=== PATIENT | male | born 1955 | race Caucasian/White ===

== ENCOUNTER 2020-08-20 02:11 | Outpatient (CLI) | payer MEDICARE, SELFPAY ==
[2020-08-20 22:41] LABS: SARS-CoV-2 RNA PCR Negative
== END 2020-08-20 02:12 | disposition home or self-care (01) ==
LOC: ANHCOVIDDT 02:13
PROVIDERS: PCP Family Medicine; Visit Provider Internal Medicine Gastroenterology
DX: Z01.812 Encounter for preprocedural laboratory examination (principal); Z20.828 Contact with and (suspected) exposure to other viral communicable diseases
CPT/HCPCS: 87635; C9803; U0003

== ENCOUNTER 2020-08-23 00:52 | Day surgery (SDC) | payer MEDICARE, SELFPAY ==
[2020-08-16 13:08] VITALS: BMI 29.4
[2020-08-23 06:50] VITALS: BP 132/72; PULSE 81; RESP 16; TEMP 36.2; O2SAT 97; BMI 29.9
[2020-08-23] MEDS: LACTATED RINGERS 1,000 ML 150 ML IV CONT (06:55)
--- NOTE | 2020-08-23 07:34 | WPDANESEPPF ---
Anes - Initial Pre Proc Eval Procedure: Operation Date: 08/23/20 08:00 Proposed Procedures p Screening Colonoscopy - Skyler Roland MD Date/Time: 08/23/20 07:34 Surgeon: Skyler Roland MD Pre Op Diagnosis: Hx Colon Polyps Patient Data Age: 64 Gender: M Height: 5 ft 10 in Weight: 94.8 kg Last Vital Signs Temp 36.2 C L 08/23/20 06:50 Pulse 81 08/23/20 06:50 Resp 16 08/23/20 06:50 BP 132/72 08/23/20 06:50 Pulse Ox 97 08/23/20 06:50 Allergies Allergy/AdvReac Type Severity Reaction Status Date / Time No Known Allergies Allergy Unknown Verified 08/23/20 06:49 Home Medications Medication Instructions Recorded Confirmed Type cyanocobalamin (vitamin B-12) 1,000 mcg PO DAILY 07/17/19 08/23/20 History 1,000 mcg capsule gabapentin 600 mg tablet 600 mg PO TID #270 tablet 05/01/20 08/23/20 Rx lisinopril 40 mg tablet 40 mg PO DAILY #90 tablet 05/01/20 08/23/20 Rx levothyroxine 100 mcg tablet 100 mcg PO DAILY #90 tablet 08/19/20 08/23/20 Rx Patient hx anesthesia problems: none Family hx anesthesia problems: none PMFSH Past Medical History Medical History Benign colon polyp Benign microscopic hematuria BMI 31.0-31.9,adult Chronic kidney disease (CKD) stage G3a/A1, moderately decreased glomerular filtration rate (GFR) between 45-59 mL/min/1.73 square meter and albuminuria creatinine ratio less than 30 mg/g Conjunctivitis, left eye Gout of right foot History of throat cancer Hypothyroidism, unspecified Mixed hyperlipidemia Nocturia Vitamin B12 deficiency anemia Vitamin D deficiency, unspecified Family History Family History (Updated 01/26/19 @ 14:51 by DOCTOR UNKNOWN) Mother Family history of osteoporosis Father Patient's father is Family history of cardiovascular disease, Onset Age: 50 Family history of malignant neoplasm Grandparent Family history of malignant neoplasm Social History Social History Smoking status: Never smoker Tobacco type: cigarettes Alcohol intake: current Drinks per week: 5 Alcohol use details: beer Substance use: never Substance use type: does not use Living arrangements: with family Gender identity (if verbalized by the patient): Male Spiritual care concerns: No Anes - Eval Final PreProcedure Day of Procedure 08/23/20 07:34 Patient weight: obese Heart: regular rate and rhythm Lungs: clear to auscultation Airway: Mallampati scale class II Neurological: alert and oriented Last oral intake: >/= 8 hours ASA classification: III Emergent: no Anesthetic plan: proceed Anesthesia type and monitoring: general GIVS and standard monitoring Informed Consent: The patient's anesthetic plan and its attendant risks and benefits were discussed with the patient/family/POA. Questions were solicited and answers provided to the satisfaction of the patient/family/POA.
--- NOTE | 2020-08-23 07:46 | WPDGICN ---
Assessment and Plan Assessment and plan (1) History of colon polyps: Code(s): Z86.010 - Personal history of colonic polyps Status: Acute Assessment and Plan: Patient had tubular adenomatous colon polyp removed in the colon 2014. Plan is for follow-up colonoscopy at this time. Should be continued at intervals in the future about 5 year intervals. (2) History of throat cancer: Code(s): Z85.819 - Personal history of malignant neoplasm of unspecified site of lip, oral cavity, and pharynx Status: Acute GI Consult Note Consult date/time: 08/23/20 07:46 HPI: Aida Chang is a 64 year old male Seen in evaluation at the request of Dr. Velasco. Patient presents for screening colonoscopy. Patient was found to have adenomatous colon polyps by previous colonoscopy in 2014. Patient reports current weight appetite bowel movements are all normal. He denies abdominal pain. He has had no bleeding. Family history is noncontributory. Review of Systems Review of Systems: All systems reviewed & are unremarkable except as noted in HPI and below PMFSH Past Medical History Medical History Benign colon polyp Benign microscopic hematuria BMI 31.0-31.9,adult Chronic kidney disease (CKD) stage G3a/A1, moderately decreased glomerular filtration rate (GFR) between 45-59 mL/min/1.73 square meter and albuminuria creatinine ratio less than 30 mg/g Conjunctivitis, left eye Gout of right foot History of throat cancer Hypothyroidism, unspecified Mixed hyperlipidemia Nocturia Vitamin B12 deficiency anemia Vitamin D deficiency, unspecified Family History Family History (Updated 01/26/19 @ 14:51 by DOCTOR UNKNOWN) Mother Family history of osteoporosis Father Patient's father is Family history of cardiovascular disease, Onset Age: 50 Family history of malignant neoplasm Grandparent Family history of malignant neoplasm Social History Social History Smoking status: Never smoker Tobacco type: cigarettes Alcohol intake: current Drinks per week: 5 Alcohol use details: beer Substance use: never Substance use type: does not use Living arrangements: with family Gender identity (if verbalized by the patient): Male Spiritual care concerns: No Meds Home Medications and Allergies Home Medications Medication Instructions Recorded Confirmed Type cyanocobalamin (vitamin B-12) 1,000 mcg PO DAILY 07/17/19 08/23/20 History 1,000 mcg capsule gabapentin 600 mg tablet 600 mg PO TID #270 tablet 05/01/20 08/23/20 Rx lisinopril 40 mg tablet 40 mg PO DAILY #90 tablet 05/01/20 08/23/20 Rx levothyroxine 100 mcg tablet 100 mcg PO DAILY #90 tablet 08/19/20 08/23/20 Rx Allergies Allergy/AdvReac Type Severity Reaction Status Date / Time No Known Allergies Allergy Unknown Verified 08/23/20 06:49 Vital Signs Vital Signs - 24 hr 08/23/20 06:50 Temperature 97.1 F L Pulse Rate 81 Respiratory Rate 16 Blood Pressure 132/72 Pulse Oximetry 97 Exam Narrative: Exam Narrative: Physical exam reveals Vital Signs to be stable. HEENT exam unremarkable. Lungs are clear to auscultation and percussion. Heart is without murmur or extra sounds. Abdominal exam bowel sounds are present soft nontender with no organomegaly.
[2020-08-23 08:17] VITALS: BP 103/62; PULSE 54; RESP 22; O2SAT 95
[2020-08-23 08:27] VITALS: BP 101/66; PULSE 56; RESP 16; O2SAT 98
== END 2020-08-23 08:48 | disposition home or self-care (01) ==
PROVIDERS: PCP Family Medicine; Visit Provider Internal Medicine Gastroenterology
PROC: 0DJD8ZZ Inspection of Lower Intestinal Tract, Via Natural or Artificial Opening Endoscopic (ICD-10-PCS; CPT 45378; principal; 2020-08-23 08:00)
DX: Z12.11 Encounter for screening for malignant neoplasm of colon (principal); D12.2 Benign neoplasm of ascending colon; K64.8 Other hemorrhoids; K57.30 Diverticulosis of large intestine without perforation or abscess without bleeding; E03.9 Hypothyroidism, unspecified; R31.29 Other microscopic hematuria; N18.31 Chronic kidney disease, stage 3a; M10.9 Gout, unspecified; E78.5 Hyperlipidemia, unspecified; R35.1 Nocturia; D51.9 Vitamin B12 deficiency anemia, unspecified; E55.9 Vitamin D deficiency, unspecified; Z85.819 Personal history of malignant neoplasm of unspecified site of lip, oral cavity, and pharynx; E66.9 Obesity, unspecified; Z68.30 Body mass index [BMI] 30.0-30.9, adult
CPT/HCPCS: 45385; 88305; J2704; J7120

== ENCOUNTER 2024-01-10 17:10 | Outpatient (CLI) | payer MEDICARE, SELFPAY ==
--- NOTE | ~2024-01-10 | XR_ITS ---
Left Knee Technique: AP, lateral, and sunrise views were obtained. Clinical History: Pain Findings: No fracture or dislocation is seen. Osseous alignment is anatomic. Minimal degenerative spu rring noted, with probable medial compartment narrowing. Soft tissues are unremarkable. No joint effu coleen is seen. Impression: Minimal degenerative spurring, with probable medial compartment narrowing. Reviewed, dictated and finalized at location . Impression: Minimal degenerative spurring, with probable medial compartment narrowing.
--- NOTE | ~2024-01-10 | XR_ITS ---
Right Knee Technique: AP, lateral, and sunrise views were obtained. Clinical History: Pain Findings: No fracture or dislocation is seen. Osseous alignment is anatomic. There is minimal degener ative spurring with probable mild medial compartment narrowing. Soft tissues are unremarkable. No gaby nt effusion is seen. Impression: Minimal degenerative spurring with probable medial compartment narrowing. Reviewed, dictated and finalized at [facility]. Impression: Minimal degenerative spurring with probable medial compartment narrowing.
== END 2024-01-10 17:11 | disposition home or self-care (01) ==
LOC: ANHIMG 17:11
PROVIDERS: PCP Family Medicine; Visit Provider Nurse Practitioner Family
DX: M25.762 Osteophyte, left knee (principal); M25.761 Osteophyte, right knee
CPT/HCPCS: 73564

== ENCOUNTER 2024-02-11 09:46 | Emergency (ER) | payer MEDICARE, SELFPAY ==
--- NOTE | ~2024-02-11 | XR_ITS ---
EXAMINATION: XR chest 2V DATE: 02/11/2024 10:12 INDICATION: Productive cough. TECHNIQUE: Frontal and lateral views of the chest were obtained on 3 radiographs. COMPARISON: None. FINDINGS: There is no pneumonia, pleural effusion, or pneumothorax. The heart size is normal. IMPRESSION: 1. No acute cardiopulmonary disease. Reviewed, dictated and finalized at location A.
[2024-02-11 10:02] VITALS: BP 118/88; PULSE 93; RESP 20; TEMP 36.4; O2SAT 99
--- NOTE | 2024-02-11 10:28 | ED.URI ---
HPI - URI/Sore Throat General Chief Complaint: Upper Respiratory Infection Stated Complaint: Cold symptoms Source: patient and RN notes reviewed Mode of arrival: ambulatory Limitations: no limitations History of Present Illness HPI Narrative: 68-year-old male presented for complaint of cough and chest congestion, headache, body aches, sinus pressure/congestion, fever/chills. Cough is productive of green sputum. Endorses cough causes bilateral rib pain. Denies sob, wheezing, n/v/d. Patient returned from [facility] the day after onset. MD elicited complaint: cough Related Data Home Medications Medication Instructions Recorded Confirmed cyanocobalamin (vitamin B-12) 1,000 mcg PO DAILY 07/17/19 02/11/24 1,000 mcg capsule cholecalciferol (vitamin D3) 125 5,000 unit PO DAILY 09/09/23 02/11/24 mcg (5,000 unit) capsule Allergies Allergy/AdvReac Type Severity Reaction Status Date / Time No Known Allergies Allergy Unknown Verified 02/11/24 09:58 Review of Systems Review of Systems: CONSTITUTIONAL: Endorses malaise, chills, sweats, fever EYES: Denies visual changes, redness, or discharge ENT: Reports rhinorrhea, congestion, denies sinus pain, otalgia, sore throat CARDIOVASCULAR: Denies chest pain, palpitations, edema RESPIRATORY: Reports cough, Denies dyspnea GASTROINTESTINAL: Denies abdominal pain, nausea, vomiting, diarrhea SKIN: Denies rash or itching MUSCULOSKELETAL: Endorses myalgia NEUROLOGIC: reports headache PMFSH Past Medical History Medical History Abnormal fasting glucose (08/13/21) glucose 103 on 08/13/2021. glucose 98 with hemoglobin A1c 5.4 on 08/12/2022. Fasting glucose 102 with hemoglobin A1c 5.2 on 02/15/2023. Glucose 87 with hemoglobin A1c 5.1 on 08/27/2023. Adverse effect of antineoplastic and immunosuppressive drugs, initial encounter At low risk for fall Benign colon polyp Colonoscopy 08/23/[address] Roland with recheck in 5 years. Benign microscopic hematuria Urinalysis normal 08/12/2022. Urinalysis unremarkable except for trace protein 08/27/2023. BMI 28.0-28.9,adult BMI 29.0-29.9,adult BMI 31.0-31.9,adult Chronic kidney disease (CKD) stage G3a/A1, moderately decreased glomerular filtration rate (GFR) between 45-59 mL/min/1.73 square meter and albuminuria creatinine ratio less than 30 mg/g BUN 19, creatinine 1.38 with GFR 53 on 08/13/2021. BUN 28, creatinine 1.32 with GFR 59 on 08/12/2022. BUN 15 with creatinine 1.41 with GFR 54 on 02/15/2023. BUN 20, creatinine 1.44 with GFR 53 on 08/27/2023. Complete rupture of left Achilles tendon (09/17/21) Conjunctivitis, left eye Encounter for HCV screening test for high risk patient (08/27/23) Hepatitis C screen was negative on 08/27/2023. Encounter for prostate cancer screening PSA 2.66 on 08/12/2022. PSA 2.35 on 08/27/2023. Ganglion cyst of foot (~02/2023) left medial foot 2 cm Gout of right foot uric acid 7.1 on 08/13/2021. Uric acid 6.7 on 08/12/2022. Uric acid 7.2 on 02/15/2023. Uric acid 7.4 on 08/27/2023. History of throat cancer Tongue and tonsil treated with chemotherapy and radiation treatment Hypothyroidism, unspecified TSH 0.49 on 08/13/2021. TSH 0.74 on 08/12/2022. TSH 0.92 on 08/27/2023. Left knee pain Leukocytosis (08/12/22) WBC elevated at 13.7 on 08/12/2022. The DPC normal at 5.6 on 02/15/2023. WBC normal at 5.9 on 08/27/2023 Mixed hyperlipidemia Total cholesterol 211, HDL 49, triglycerides 102, LDL 140 on 08/13/2021. Total cholesterol 188, triglycerides 100, HDL 48, LDL 119 on 08/12/2022. total cholesterol 174, triglycerides 74, HDL 45, LDL 113 with ratio 3.9 on 08/27/2023. Nocturia PSA 2.81 on 08/13/2021. Overweight (BMI 25.0-29.9) Right knee pain Vitamin B12 deficiency anemia normal at 839 on 08/13/2021. level normal at 666 with hemoglobin 14.8 on 08/12/2022. Level normal at 864 with hemoglobin 14.6 on 08/27/2023. Vitamin D deficiency, unspecifi
== END 2024-02-11 11:11 | disposition home or self-care (01) ==
PROVIDERS: Emergency Provider Nurse Practitioner Family; PCP Family Medicine
DX: U07.1 COVID-19 (principal); I12.9 Hypertensive chronic kidney disease with stage 1 through stage 4 chronic kidney disease, or unspecified chronic kidney disease; N18.31 Chronic kidney disease, stage 3a; M10.9 Gout, unspecified; E03.9 Hypothyroidism, unspecified; E78.2 Mixed hyperlipidemia; E55.9 Vitamin D deficiency, unspecified; D51.9 Vitamin B12 deficiency anemia, unspecified; Z85.819 Personal history of malignant neoplasm of unspecified site of lip, oral cavity, and pharynx
CPT/HCPCS: 71046; 87426; 99213; G0463

== ENCOUNTER 2024-03-08 09:32 | Outpatient (CLI) | payer MEDICARE, SELFPAY ==
--- NOTE | 2024-03-08 09:59 | ECG_ITS ---
Test Date: 2024-03-08 10:03:54 Measurements Intervals [place] Rate: 49 P: 49 MI: 174 QRS: 50 QRSD: 103 T: 62 QT: 418 QTc: 380 Interpretive Statements SINUS BRADYCARDIA ABNORMAL ECG No previous ECG available for comparison Electronically Signed On 03-08-2024 10:48:01 CDT by Antonio Acevedo D.O.
[2024-03-08 10:18] LABS: Appearance Urine Clear (Clear); Bilirubin Urine Negative (Negative); Blood Urine Negative (Negative); Color Urine Yellow (Yellow); Glucose Urine UA Negative (Negative); Ketones Urine Negative (Negative); Leukocyte Esterase Ur Negative LEU/UL (Negative); Nitrate Urine Negative (Negative); Protein Urine Negative (Negative); Specific Grav Ur 1.013 (1.001-1.035); Urobilinogen Urine 0.2 mg/dL (<2.0); pH Urine 5.5 (5.0-9.0)
[2024-03-08 10:21] LABS: Add Urine Microscopic? NO
[2024-03-08 10:23] LABS: Hematocrit 40.8 % (42.0-52.0); Hemoglobin 14.1 g/dL (14.0-18.0)
[2024-03-08 10:28] LABS: Alanine Aminotransferase 13 U/L (6-50); Albumin Level 4.4 g/dL (3.5-5.1); Alkaline Phosphatase 71 U/L (38-126); Anion Gap 6 mmol/L (4-12); Aspartate Amino Transferase 21 U/L (17-59); Bilirubin,Total 0.7 mg/dL (0.2-1.3); Blood Urea Nitrogen 23 mg/dL (9-20); Calcium 9.4 mg/dL (8.4-10.2); Carbon Dioxide 27 mmol/L (22-30); Chloride 104 mmol/L (98-107); Cholesterol 216 mg/dL (0-200); Estimated Glomerular Filt Rate 40; Glucose 101 mg/dL (65-110); HDL Direct 45 mg/dL; Potassium 4.6 mmol/L (3.4-5.0); Sodium 137 mmol/L (137-145); Triglycerides 165 mg/dL (<150)
[2024-03-08 10:35] LABS: Hemoglobin A1C 5.6 % (<5.7)
[2024-03-08 10:39] LABS: LDL Cholesterol Direct 139 mg/dL
== END 2024-03-08 09:33 | disposition home or self-care (01) ==
LOC: ANHLAB 09:40
PROVIDERS: PCP Family Medicine; Referring Provider Family Medicine; Visit Provider Orthopaedic Surgery
DX: Z01.818 Encounter for other preprocedural examination (principal); E03.9 Hypothyroidism, unspecified; M17.11 Unilateral primary osteoarthritis, right knee; E78.2 Mixed hyperlipidemia; R73.01 Impaired fasting glucose; I12.9 Hypertensive chronic kidney disease with stage 1 through stage 4 chronic kidney disease, or unspecified chronic kidney disease; N18.31 Chronic kidney disease, stage 3a; R94.31 Abnormal electrocardiogram [ECG] [EKG]
CPT/HCPCS: 36415; 80048; 80061; 80076; 81003; 82040; 82565; 82947; 83036; 84443; 85014; 85018; 93005

== ENCOUNTER 2024-03-27 09:11 | Outpatient (CLI) | payer MEDICARE, SELFPAY ==
[2024-03-27 09:55] LABS: Albumin Level 4.2 g/dL (3.5-5.1); Anion Gap 5 mmol/L (4-12); Blood Urea Nitrogen 20 mg/dL (9-20); Calcium 9.2 mg/dL (8.4-10.2); Carbon Dioxide 29 mmol/L (22-30); Chloride 103 mmol/L (98-107); Estimated Glomerular Filt Rate 46; Glucose 104 mg/dL (65-110); Phosphorus 2.7 mg/dL (2.5-4.5); Potassium 4.5 mmol/L (3.4-5.0); Sodium 137 mmol/L (137-145)
== END 2024-03-27 09:12 | disposition home or self-care (01) ==
PROVIDERS: PCP Family Medicine; Visit Provider Internal Medicine Nephrology
DX: N18.32 Chronic kidney disease, stage 3b (principal)
CPT/HCPCS: 36415; 80069

== ENCOUNTER 2024-06-21 10:15 | Outpatient (CLI) | payer MEDICARE, SELFPAY ==
[2024-06-21 12:03] LABS: Basophils Absolute Auto 0.1 K/mm3 (0.0-0.1); Eosinophils Absolute Auto 0.2 K/mm3 (0-0.3); Eosinophils Percent Auto 2.6 % (0-4.4); Hematocrit 48.1 % (42.0-52.0); Hemoglobin 16.3 g/dL (14.0-18.0); Immature Granulocyte Absolute 0.04 K/mm3 (0.00-0.031); Immature Granulocyte Percent A 0.6 % (0-0.5); Lymphocytes Absolute Auto 1.58 K/mm3 (0.9-3.2); Lymphocytes Percent Auto 21.8 % (18.3-44.2); Mean Corpuscular HGB Conc 33.9 g/dl (32-36); Mean Corpuscular Hemoglobin 30.8 pg (26-34); Mean Corpuscular Volume 90.9 fl (80-100); Mean Platelet Volume 10.1 fl (7.4-10.4); Monocytes Absolute Auto 0.6 K/mm3 (0.1-0.6); Neutrophils Absolute Auto 4.8 K/mm3 (1.3-6.7); Platelet Count Result 224 k/mm3 (150-375); Red Blood Count 5.29 M/mm3 (4.6-6.20); Red Cell Distribution Width 12.7 % (11.5-14.5); White Blood Count 7.3 K/mm3 (4.5-10.0)
[2024-06-21 12:15] LABS: Albumin Level 4.8 g/dL (3.5-5.1); Estimated Glomerular Filt Rate 30; Glucose 95 mg/dL (65-110)
[2024-06-21 12:21] LABS: Urine Cotinine NEGATIVE
[2024-06-21 13:15] LABS: MRSA (PCR) NOT DETECTED (NOT DETECTE)
[2024-06-21 13:55] LABS: Hemoglobin A1C 5.5 % (<5.7)
== END 2024-06-21 10:16 | disposition home or self-care (01) ==
PROVIDERS: PCP Family Medicine; Visit Provider Orthopaedic Surgery
DX: Z01.812 Encounter for preprocedural laboratory examination (principal); M17.11 Unilateral primary osteoarthritis, right knee
CPT/HCPCS: 80307; 82040; 82565; 82947; 83036; 85025; 87641

== ENCOUNTER 2024-07-20 01:14 | Day surgery (SDC) | payer MEDICARE, SELFPAY ==
[2024-06-21 10:26] VITALS: BMI 30.1
--- NOTE | 2024-06-21 10:55 | PC.NURSE ---
Report to the Outpatient Waiting Room, entrance under the green pavilion located off [facility], at time _6 AM on date _07/20/24 . Planned Procedure Time: _7:30 AM .? Time changes happen often and if your time is changed the preop area will call you the afternoon before. - You and your visitor will be asked to self-screen and do not enter if you have any COVID symptoms. Please call surgeon if you need to reschedule. - A mask is optional within the hospital at this time. Patients may have clear liquids (water, carbonated beverages, clear teas, apple juice) until 3 hours prior to surgery(4:30 AM) with a maximum of 20 ounces. - No food from midnight until time of surgery and no smoking - Infants may have breast milk until 4 hours before surgery, infant formula 6 hours prior to surgery. - Children will be allowed to drink immediately following surgery.? If applicable, please bring a bottle or sippy cup to assist with drinking. Juice, water, soda, and popsicles are readily available.? For infants on formula, please bring formula the day of surgery.? Pacifiers are allowed. Take only the following medications with a SIP of water on the morning of surgery: _GABAPENTIN,LEVOTHYROXINE, DO NOT STOP ANY OF YOUR OTHER PRESCRIPTION MEDICATIONS PRIOR TO SURGERY EXCEPT THE FOLLOWING Medications to discontinue per physician __HOLD IBUPROFEN 7 DAYS PRE OP PER DR HUNTLEY. LAST DOSE 07/12/24_MAY TAKE TYLENOL IF NEEDED FOR PAIN PT STATES HOLD ALL VITAMINS AND SUPPLEMENTS 7 DAYS PRE OP PER DR HUNTLEY .LASTT DOSE 07/12/24 Please no make-up, nail maori, hairspray, perfume, deodorant, or body powder the day of surgery.? No jewelry (including any body piercings) or valuables the day of surgery, leave them at home.? Please take a shower or bath the night before, or the morning of, surgery with an antibacterial soap.? Wear comfortable, loose fitting clothing.? Children are encouraged to wear pajamas. - Jewelry must be removed prior to entering the operating room.? Rings and piercings that are not removed may be cut off. - The hospital will not accept responsibility for valuables.? - Please leave all valuables, including medications, at home the day of surgery. If you are going home after surgery, a licensed restaurant delivery driver must drive you home.? - NO public transportation without another adult if you receive anesthesia. - We recommend that an adult stay with you for 24 hours following discharge. - We also recommend that you do not drive, make important decision, drink alcoholic beverages, or take any drugs that were not prescribed by your health care provider for at least 24 hours after your discharge time. Follow any additional instructions given to you from your surgeon. VERBAL AND WRITTEN instructions given to PATIENT AND MARLENE and asked if any additional questions and then verbalized understanding. Patient advised to call surgeon office or pre surgery nurse liaison [phone] if any additional questions.
[2024-06-21 11:16] VITALS: BP 157/92; PULSE 55; RESP 18; TEMP 36.7; O2SAT 99
[2024-07-20] VITALS (14 sets, daily range): BP systolic 123–145; BP diastolic 65–89; PULSE 45–80; RESP 10–18; TEMP 36.2–37.6; O2SAT 96–100
--- NOTE | ~2024-07-20 | XR_ITS ---
EXAMINATION: [id number] DATE: 07/20/2024 10:09 INDICATION: Postoperative evaluation following right total knee arthroplasty. TECHNIQUE: Anteroposterior and lateral views of the right knee were obtained. COMPARISON: None. FINDINGS: Right total knee arthroplasty with patellar resurfacing appears well seated and in near anatomic alig nment. No fractures identified. Expected postoperative subcutaneous and intra-articular gas. IMPRESSION: 1. Right total knee arthroplasty, negative for postoperative purposes. Reviewed, dictated and finalized at location B. ET OPENINGS INSPECTOR
[2024-07-20] MEDS: ACETAMINOPHEN 500 MG TABLET 1000 MG PO (06:55)
[2024-07-20] MEDS: TRANEXAMIC ACID 1,000MG/ISO100 1,000 MG/100 ML BAG 200 MG IVPB ×2 (06:55→09:13)
--- NOTE | 2024-07-20 07:04 | WPDANESEPPF ---
Anes - Initial Pre Proc Eval Procedure: Operation Date: 07/20/24 07:30 Proposed Procedures p Right Total Knee Arthroplasty - Jt Loomis MD Date/Time: 07/20/24 07:04 Surgeon: Jt Loomis MD Pre Op Diagnosis: Prim O A Rt knee Patient Data Age: 68 Gender: M Height: 1.77 m Weight: 93.9 kg Last Vital Signs Temp 98.1 F 06/21/24 11:16 Pulse 55 L 06/21/24 11:16 Resp 18 06/21/24 11:16 BP 157/92 H 06/21/24 11:16 Pulse Ox 99 06/21/24 11:16 O2 Del Method Room Air 06/21/24 11:16 Allergies Allergy/AdvReac Type Severity Reaction Status Date / Time No Known Allergies Allergy Unknown Verified 06/21/24 10:27 Home Medications Medication Instructions Recorded Confirmed Type cyanocobalamin (vitamin B-12) 1,000 mcg PO DAILY 07/17/19 06/21/24 History 1,000 mcg capsule lisinopril 40 mg tablet 40 mg PO DAILY #90 tabs 07/19/23 06/21/24 Rx cholecalciferol (vitamin D3) 125 5,000 unit PO DAILY 09/09/23 06/21/24 History mcg (5,000 unit) capsule levothyroxine 100 mcg tablet 100 mcg PO DAILY #90 tabs 02/28/24 06/21/24 Rx dapagliflozin propanediol 10 mg 10 mg PO DAILY #90 tabs 03/29/24 06/21/24 Rx tablet (Farxiga) gabapentin 600 mg tablet 600 mg PO BID #270 tabs 06/05/24 06/21/24 Rx ibuprofen 400 mg tablet 400 mg PO Q6H PRN Pain 06/21/24 06/21/24 History Patient hx anesthesia problems: none Family hx anesthesia problems: none Results Review: All pre-operative results and documents have been reviewed as part of the pre-operative evaluation. [facility] Past Medical History Medical History Abnormal fasting glucose (08/13/21) glucose 103 on 08/13/2021. glucose 98 with hemoglobin A1c 5.4 on 08/12/2022. Fasting glucose 102 with hemoglobin A1c 5.2 on 02/15/2023. Glucose 87 with hemoglobin A1c 5.1 on 08/27/2023. Glucose 101 with hemoglobin A1c 5.6 on 03/08/2024. Glucose 101 with hemoglobin A1c 5.6 on 03/08/2024. Glucose 104 on 03/27/2024. Glucose 95 with hemoglobin A1c 5.5 on 06/21/2024. Adverse effect of antineoplastic and immunosuppressive drugs, initial encounter At low risk for fall Benign colon polyp Colonoscopy 08/23/[address] Roland with recheck in 5 years. Benign microscopic hematuria Urinalysis normal 08/12/2022. Urinalysis unremarkable except for trace protein 08/27/2023. BMI 28.0-28.9,adult BMI 29.0-29.9,adult BMI 31.0-31.9,adult Chronic kidney disease (CKD) stage G3a/A1, moderately decreased glomerular filtration rate (GFR) between 45-59 mL/min/1.73 square meter and albuminuria creatinine ratio less than 30 mg/g BUN 19, creatinine 1.38 with GFR 53 on 08/13/2021. BUN 28, creatinine 1.32 with GFR 59 on 08/12/2022. BUN 15 with creatinine 1.41 with GFR 54 on 02/15/2023. BUN 20, creatinine 1.44 with GFR 53 on 08/27/2023. BUN 23, creatinine 1.70, GFR 40 on 03/08/2024. Complete rupture of left Achilles tendon (09/17/21) Conjunctivitis, left eye COVID-19 Encounter for HCV screening test for high risk patient (08/27/23) Hepatitis C screen was negative on 08/27/2023. Encounter for prostate cancer screening PSA 2.66 on 08/12/2022. PSA 2.35 on 08/27/2023. Ganglion cyst of foot (~02/2023) left medial foot 2 cm Gout of right foot uric acid 7.1 on 08/13/2021. Uric acid 6.7 on 08/12/2022. Uric acid 7.2 on 02/15/2023. Uric acid 7.4 on 08/27/2023. History of throat cancer Tongue and tonsil treated with chemotherapy and radiation treatment Hypothyroidism, unspecified TSH 0.49 on 08/13/2021. TSH 0.74 on 08/12/2022. TSH 0.92 on 08/27/2023. TSH 1.48 on 03/08/2024. Left knee pain Leukocytosis (08/12/22) WBC elevated at 13.7 on 08/12/2022. The DPC normal at 5.6 on 02/15/2023. WBC normal at 5.9 on 08/27/2023 Mixed hyperlipidemia Total cholesterol 211, HDL 49, triglycerides 102, LDL 140 on 08/13/2021. Total cholesterol 188, triglycerides 100, HDL 48, LDL 119 on 08/12/2022. total cholesterol 174, triglycerides 74, HDL 45, LDL 113 with ratio 3.9 on 08/27/2023. Cholesterol 216, triglycerides 165, HDL 45, LDL 139 on 03/08/2024. Nocturia PSA 2.81 on 08/13/2021. Overweight (BMI 25.0-29.9) Right knee pain Vitamin B12 deficiency anemia normal at 839 on 08/13/2021. level normal at 666 with hemoglobin 14.8 on 08/12/2022. Level normal at 864 with hemoglobin 14.6 on 08/27/2023. Vitamin D deficiency, unspecified level low at 22 on 08/13/2021. Low at 25 on 08/12/2022 with PTH normal at 36. vitamin D 24 on 02/15/2023. Level low at 23 on 08/27/2023. Surgical History Surgical History History of arthroscopic knee surgery Family History Family History Mother Family history of osteoporosis Father Patient's father is Family history of cardiovascular disease, Onset Age: 50 Family history of malignant neoplasm Family history of alcoholism Hypertension Heart disease Grandparent Family history of malignant neoplasm Sibling Family history of alcoholism Social History Social History Smoking packs per day: 1 Smoking cigarettes per day: 20.0 Years smoked: 6 Smoking pack-years: 6.00 Smoking status: Former smoker Tobacco type: cigarettes Smoking end date: 09/06/98 Additional smoking assessment comments: DENIES ANY FORM OF TOBACCO USE Alcohol intake: current Drinks per week: 8 Alcohol use details: beer Substance use: never Substance use type: does not use Do You Feel Safe in your Home?: Yes Lack of Transportation: No Lack of Food: Never True Current Housing: I Have Housing Concerned About Future Housing: No Difficulty Paying Gas/Electric Bills: No Difficulty Paying for Meds: No Currently Unemployed: No Education: High School Diploma/GED Difficulty w/ Childcare or Family Care: Decline to Answer Living arrangements: with family Occupation/Education: retired Gender identity (if verbalized by the patient): Male Spiritual care concerns: No Anes - Eval Final PreProcedure Day of Procedure 07/20/24 07:04 Patient weight: overweight Heart: regular rate and rhythm Lungs: clear to auscultation Airway: Mallampati scale class II Neurological: alert and oriented Last oral intake: >/= 8 hours ASA classification: III Emergent: no Anesthetic plan: proceed Anesthesia type and monitoring: general LMA and standard monitoring Results Review: All pre-operative results and documents have been reviewed as part of the pre-operative evaluation. HTN, hyperlipidemia, hypothyroidism, hx of tonsillar ca, s/p chemo and radiation (no surgery). Pt active without cp or sob, limited by knee pain. EKG w NSR, SB. Informed Consent: The patient's anesthetic plan and its attendant risks and benefits were discussed with the patient/family/POA. Questions were solicited and answers provided to the satisfaction of the patient/family/POA.
--- NOTE | 2024-07-20 07:09 | WPDHPUPDATE1 ---
History and Physical Update Update Date/Time: 07/20/24 07:09 History and Physical has been reviewed, including an updated exam of the patient. There are NO changes in the patient's condition. Risks, benefits, and alternatives have been discussed and questions answered. Patient agrees to proceed with procedure.
[2024-07-20] MEDS: ceFAZolin 2 GM/D5W 50 ML 2 GM/50 ML BAG IVPB ×3 (07:35→23:07)
[2024-07-20] MEDS: SODIUM CHLORIDE 0.9% IV 37.7 ML, MORPHINE SULFATE INJ (*CRX) 2 MG, ROPivacaine HCL 1% 2... INFILTRATE (08:05)
[2024-07-20] MEDS: GENTAMICIN BONE CEMENT REFOBACIN 1 EACH TOPICAL (08:10)
[2024-07-20] MEDS: LACTATED RINGERS 1,000 ML 30 ML IV CONT ×2 (09:41)
--- NOTE | 2024-07-20 10:08 | P.OP_ITS ---
Procedure Note - Detailed Date of Procedure 07/20/24 Pre-op Diagnosis Right knee degenerative arthritis. Post-op Diagnosis Same Procedure Performed Calipered, kinematically aligned total knee replacement right knee. Surgeon Jt Loomis MD Recruiting And Selection Consultant Naila Helms PA-C Anesthesia General Findings According to the calipered kinematic alignment principles, the knee was balanced by the following verification checks incorporating 6 caliper measurements, using an insert goniometer to select the insert thickness, and adjusting the tibial resection following the kinematic alignment algorithm (see figure 160.10 published in [employer] [facility] chapter on kinematic alignment total knee arthroplasty.) The steps verified the femoral and tibial components were kinematically aligned coincident to the patient's pre arthritic joint lines, which closely restored the dry creek tibial compartment forces and ligament laxities without ligament release. The [employer] knee, designed specifically for kinematic alignment, fit optimally. The record of verification checks were documented and scanned into the chart. Distal Femoral Resection: Distal Medial 6 mm(cartilage worn), Distal Lateral 8 mm Target thickness of 8mm Unworn, 6mm Worn (No Cartilage). Posterior Femoral Resection: Posterior Medial 5 mm(cartilage worn), Posterior Lateral 7 mm. Target thickness of 7mm Unworn, 5mm Worn (No Cartilage). Description of Procedure General anesthesia was administered. A well-padded tourniquet was placed high on the thigh. The limb was prepped and draped in the usual sterile fashion. The limb was exsanguinated and the tourniquet inflated to 300 mmHg. A longitudinal incision was created over the midline of the knee. Sharp dissection was taken through subcutaneous tissues. Electrocautery was used for hemostasis. A trivector approach to the knee joint was performed. The ACL, anterior horns of the menisci, and fat pad were excised, and a subperiosteal dissection was carried along the posterior medial border of the tibia. The thickness of the dry creek patella was measured with a caliper. The patella was resected using the oscillating saw. The best fitting anatomic patella button was selected. The fixation holes were drilled. When the patella and patella buttons combined thickness was thicker than the dry creek patella, the patella was recut. Starting midway between the top of the notch in the anterior femoral cortex, I drilled a 9 mm diameter hole parallel to the anterior cortex to minimize flexion of the femoral component and promote patella tracking. I verified the existence of a 5-10 mm bone bridge between the posterior aspect of the hole and the anterior limit of the intercondylar notch. An intraosseous positioning kumar was inserted 10 cm into the femur perpendicular to the distal joint line and parall el to the anterior cortex. I used a distal femoral referencing guide that compensated 2 mm when the cartilage was worn on the distal medial femoral condyle, and 2 mm when the cartilage was worn on the distal lateral femoral condyle. The basis for setting the distal and posterior femoral resection guide is knowing that the varus and valgus grade II to IV Kellegren-Torin osteoarthritic knees have negligible bone wear at 0? and 90? and that the mean full-thickness cartilage wear approximates 2 mm. I measured the thickness of distal femoral resections with a caliper to +/- 0.5 mm. The thickness of each resection was adjusted to match the thickness of the respective condyle of the femoral component within 0.5 mm of target after compensating for cartilage wear and kerf. When the distal r esection was 1-2 mm too thin, a recut guide was used to adjust the cut. When the distal resection was too thick, a 1 or 2 mm thick washer was fixed to the back of the 4-in-1 chamfer block to nolberto a corrective gap between the femoral component and distal femur. I set posterior femoral referencing guide at 0? orientation to position the pin holes for the 4 in 1 chamfer block. The katheryn wing measured the width of the distal femoral resection and selected the size of the 4 in 1 chamfer block and femoral component. The AP sizer confirmed the size. I measured the thickness of the posterior femoral resections with a caliper before making the anterior and chamfer cuts. I adjusted the thicknesses of each resection to match the thickness of the respective condyle of the femoral component within +/-0.5 mm after compensating for cartilage wear and curve. When a posterior resection femoral resection was 1-2 mm too thick or thin a corrective correction was made by shifting or rotating the 4 in 1 chamfer block as needed. The chamfer block was secured in the correct position with compression screws. The anterior and chamfer femoral resections were made. These caliper measurements and alirio ections verified that the femoral component was set coincident with the patient's pre-arthritic distal and posterior femoral joint lines. I removed all the medial and lateral femoral and tibial osteophytes to restore the pre arthritic length of the medial and lateral collateral ligaments. I gail AP lines along the major axis of the lateral tibial plateau in between the tibial spines which identified the flexion extension plane of the knee. A conventional extramedullary tibial resection guide was applied to the ankle. An katheryn wing was placed medially in the saw slot. The varus valgus angle of the tibial resection guide was adjusted until the guide paralleled the proximal tibial articular surface after compensating for cartilage and bone wear. The slope of flexion extension angle of the tibial resection guide was adjusted until the katheryn wing paralleled the slope of the medial tibia after compensating for wear. The AP axis of the tibial resection guide was adjusted parallel to th e two lines. The proximal tibia was resected, partially releasing the insertion of the posterior cruciate ligament. The thickness of the medial and lateral lateral tibial condyle was measured at the base of the tibial spines. I visually verified the slope of the medial border of the resection was parallel to the patient's pre arthritic slope after compensating for cartilage and bone wear. I removed the remnants of the posterior horns of the menisci and posterior osteophytes and cauterized the inferior lateral genicular vessels. The Aquamantys bipolar device was also used to for additional hemostasis. When the knee had a preoperative flexion contracture of 20? or more I teased the capsule off the posterior femur with a curved 3 quarter-inch osteotome. I administered the posterior femoral periosteal injection by delivering 10 cc using a 20 gauge spinal needle at the most medial and 10 cc at the most lateral femoral spur surface which reduced the risk of injury to the posterior neurovascular structures. I followed 6 options in a decision tree to fine tune the varus valgus and posterior slope orientation of the tibial component to restore the patient's pre arthritic tibial joint line and limb alignment. First, I adjusted the varus- valgus orientation of the proximal tibia resection working in 1 degree to 2 degree increments until there was negligible medial and lateral lift off of the distal femoral and proximal tibial resection from the spacer block during a varus valgus laxity assessment in extension. I selected the largest anatomic shape trial tibial base plate that fit within the cortical boundary of the proximal tibial resection. The base plate was best fit parallel to the cortical boundary which set the Internal-external orientation of the anterior to posterior and medial to lateral positions. The best fit method set the AP axis of the tibial base plate and insert parallel to the flexion extension plane of the pre arthritic knee. I pinned the trial t ibial base plate, prepared the cruciate slot, and fixed the base plate to the tibia with the cruciate stem. I inserted the trial femoral component. The knee was placed in full extension. Varus valgus laxity is of the knee with trial components were assessed. When asymmetric laxity was observed a 1-2 degree varus or valgus recut guide was used to fine tune the tibial resection until the laxity was 1 degree or less in full extension like the dry creek knee. The following steps determined the optimal insert thickness within +/-1 mm. First I inserted an insert goniometer that matched the thickness of the spacer block. I reduced the patella and then with the knee in maximum extension, I verified the knee hyperextended a few degrees and had negligible varus valgus laxity, like the pre arthritic knee. He required a release of the posterior lateral capsule. Next, I measured the external tibial orientation which was the angle the insert goniometer intersected the sagittal line on the medial condyle of the femoral trial component. Then with the knee in 15-30 degrees flexion I verified a 3-4 mm gap in the lateral compartment and no gap in the medial compartment during a 2nd varus valgus laxity test. Next, I placed the knee in 90? of flexion and the foot resting on the operating table and measured the internal tibial orientation. I repeated the steps until I identified the insert thickness that provided the highest external tibia orientation in extension and the highest internal tibial orientation at 90? flexion without anterior lift-off of the insert from the tibial base plate. The insert with this thickness was implanted. I applied a posterior drawer test with the tibia distracted by gravity and verified no posterior subluxation of the tibia relative to the femur. The patella remained centered on the trochlea and tracked well throughout the entire arc of flexion and extension. I used pulse lavage to clean the bony surfaces of debris and dried bone. I cemented the tibial, femoral, and patellar components using 1 bag of methylmethacrylate with Gentamycin, then rechecked the stability at full extension, 15-30 degrees, and 90? flexion and verified sabianist of the entire arc of motion of the knee. The circulating nurse confirmed the sponge and needle counts were correct. I used pulse lavage to rinse the joint and wound. The extensor mechanism was closed with interrupted #1 Vicryl suture and #1 running Stratafix suture. The subcutaneous layer was closed with interrupted #1 Vicryl suture followed by 2-0 Stratafix and 3-0 Stratafix. Steri-Strips placed on the skin. Silver impregnated occlusive dressing applied to the wound. A light gauze wrap and Fito bandage were placed. The patient was transferred to the recovery room in stable condition. There were no complications. Implants Medacta GMK spheriKA Femoral component SpheriKA size 7, tibial component size 5, vitamin-E flex insert, thickness 11mm, Anatomic patella implant size 3. Estimated Blood Loss 20 Tourniquet Time Total Tourniquet Time: 80 Drains No Pathology None sent Complications No immediate complications Condition Stable Disposition PACU [facility] Billing Surgery - Charge Forward: Surgery Billing
[2024-07-20] MEDS: ACETAMINOPHEN 325 MG TABLET 650 MG PO ×3 (11:41→23:06)
--- NOTE | 2024-07-20 12:02 | ADMGEN ---
This patient, Aida Chang, was admitted to 3 Med Surg Room 317-01. Patient/family oriented to hospital policies and general routines including ID bracelet, bed and alarms, visiting hours, pain management, procedures, bathroom and other care routines, personal items, smoking policy, room service/diet, and visiting hours. Information on how to activate the Rapid Response Team has been discussed. Patient/Family are encouraged to report perceived risks to care and to ask questions if they do not understand what they are told or what they should do. Report from Danielle.
[2024-07-20] MEDS: MELOXICAM 7.5 MG TABLET PO (16:36)
[2024-07-20] MEDS: predniSONE 5 MG TABLET PO (16:36)
[2024-07-20] MEDS: GABAPENTIN 300 MG CAPSULE 600 MG PO (16:36)
[2024-07-20] MEDS: SENNA/DOCUSATE SODIUM TABLET 2 TAB PO (16:36)
[2024-07-20] MEDS: FAMOTIDINE 20 MG TABLET PO (21:38)
[2024-07-20] MEDS: ASPIRIN 81 MG ENTERIC TABLET PO (21:38)
[2024-07-21] MEDS: oxyCODONE/ACETAMINOPHEN (*CRX) 10-325 MG TABLET 1 TAB PO ×2 (02:55→08:50)
[2024-07-21 03:31] VITALS: BP 136/82; PULSE 61; RESP 18; TEMP 36.8; O2SAT 97
[2024-07-21] MEDS: LEVOTHYROXINE SODIUM 100 MCG TABLET PO (05:32)
[2024-07-21] MEDS: ACETAMINOPHEN 325 MG TABLET 650 MG PO (05:32)
[2024-07-21 07:01] LABS: Basophils Percent Auto 0.4 % (0.2-1.2); Eosinophils Percent Auto 0.3 % (0-4.4); Hematocrit 39.2 % (42.0-52.0); Immature Granulocyte Absolute 0.05 K/mm3 (0.00-0.031); Immature Granulocyte Percent A 0.5 % (0-0.5); Lymphocytes Absolute Auto 1.31 K/mm3 (0.9-3.2); Lymphocytes Percent Auto 12.8 % (18.3-44.2); Mean Corpuscular HGB Conc 33.2 g/dl (32-36); Mean Corpuscular Hemoglobin 30.7 pg (26-34); Mean Corpuscular Volume 92.7 fl (80-100); Mean Platelet Volume 10.3 fl (7.4-10.4); Monocytes Percent Auto 9.9 % (2.6-8.5); Neutrophils Absolute Auto 7.8 K/mm3 (1.3-6.7); Neutrophils Percent Auto 76.1 % (45.5-73.1); Platelet Count Result 201 k/mm3 (150-375); Red Blood Count 4.23 M/mm3 (4.6-6.20); Red Cell Distribution Width 12.9 % (11.5-14.5); White Blood Count 10.2 K/mm3 (4.5-10.0)
[2024-07-21 07:15] LABS: Anion Gap 7 mmol/L (4-12); Blood Urea Nitrogen 32 mg/dL (9-20); Calcium 8.9 mg/dL (8.4-10.2); Carbon Dioxide 26 mmol/L (22-30); Chloride 104 mmol/L (98-107); Estimated CRCL calculation 36 ml/min; Estimated Glomerular Filt Rate 33; Glucose 113 mg/dL (65-110); Potassium 5.3 mmol/L (3.4-5.0); Sodium 137 mmol/L (137-145)
[2024-07-21] MEDS: FAMOTIDINE 20 MG TABLET PO (08:50)
[2024-07-21] MEDS: EMPAGLIFLOZIN 25 MG TABLET BY MOUTH (08:51)
[2024-07-21] MEDS: ASPIRIN 81 MG ENTERIC TABLET PO (08:51)
[2024-07-21] MEDS: SENNA/DOCUSATE SODIUM TABLET 2 TAB PO (08:52)
[2024-07-21] MEDS: ceFAZolin 2 GM/D5W 50 ML 2 GM/50 ML BAG IVPB (08:52)
[2024-07-21] MEDS: lisinopriL 20 MG TABLET 40 MG PO (08:52)
[2024-07-21 08:56] VITALS: BP 140/70; PULSE 80; RESP 20; TEMP 35.9; O2SAT 100
--- NOTE | 2024-07-21 09:39 | PM.DS ---
DS: Admitting Diagnosis Discharge Date 07/21/24 Admitting Diagnosis Knee arthritis. DS: Discharge Diagnosis Discharge Diagnosis (1) Status post total right knee replacement: Onset Date: 07/20/24 Code(s): Z96.651 - Presence of right artificial knee joint Status: Acute Assessment and Plan: Postop day 1: Right total knee arthroplasty. Patient tolerated procedure well. No complications. Pain manageable with pain medication. No numbness or tingling. We had a lengthy discussion regarding postoperative wound care, limitations, expectations, and exercises. Patient shows good understanding. He has had initial physical therapy and is tolerating it well. DVT prophylaxis: 81 mg baby aspirin b.i.d. for 14 days. Pain medication: Percocet. Prednisone. Patient has followup appointment with Dr. Loomis in 3 weeks. Due to worsening kidney function after surgery (not as bad as it was 1 month ago), please call Dr. Linder's office to follow up. Drink lots of water. Avoid NSAIDs. DS: Summary Hospital Course Reason for hospitalization: Total knee arthroplasty Hospital Course: Patient tolerated procedure well. Has had initial PT/OT. Status at Discharge Functional status at discharge: uses cane/walker Overall status at discharge: patient is progressing back to baseline Time Spent with Patient Time attestation: Total time spent providing and/or coordinating discharge services: Exam Narrative: 68 y/o normal weight male. Resting comfortably in bed. Wearing compression socks bilaterally. Dressing intact with no drainage. Moderate swelling. No ecchymosis. No erythema. No hematoma. Range of motion limited due to pain. Calf nontender. Neurologic status intact. No varicosities. Distal pulses palpable. DS: Data Data Completed and Pending Labs on day of discharge: Labs from last 24 hours 07/21/24 06:48 WBC 10.2 H RBC 4.23 L Hgb 13.0 L D Hct 39.2 L MCV 92.7 MCH 30.7 MCHC 33.2 RDW 12.9 Plt Count 201 MPV 10.3 Immature Gran % (Auto) 0.5 Neut % (Auto) 76.1 H Lymph % (Auto) 12.8 L Petroleum % (Auto) 9.9 H Eos % (Auto) 0.3 Baso % (Auto) 0.4 Lymph # (Auto) 1.31 Petroleum # (Auto) 1.0 H Eos # (Auto) 0.0 Baso # (Auto) 0.0 Abs Immat Gran (auto) 0.05 H Absolute Neuts (auto) 7.8 H Absolute Nucleated RBC 0.000 Nucleated RBC % 0.0 Sodium 137 Potassium 5.3 H Chloride 104 Carbon Dioxide 26 Anion Gap 7 BUN 32 H D Creatinine 2.00 H Estim Creat Clear Calc 36 Estimated GFR 33 L Glucose 113 H Calcium 8.9 Discharge Plan Discharge Patient Disposition: Home, Self-Care Discharge Instructions: See green instruction sheets Stand Alone Forms: General Discharge Instructions Follow-up/Referrals: Naila Helms PA [Physician General Accounting Clerk] - Discharge Medications: New prednisone 5 mg tablet 5 mg PO DAILY 21 Days Qty: 21 0RF aspirin 81 mg tablet,delayed release (DR/EC) 81 mg PO BID 14 Days Qty: 28 0RF oxycodone-acetaminophen 5-325 mg tablet 1 - 2 tablet PO Q4-6H PRN (Reason: pain) 7 Days Qty: 30 0RF Continued cholecalciferol (vitamin D3) 125 mcg (5,000 unit) capsule 5,000 unit PO DAILY dapagliflozin propanediol [Farxiga] 10 mg tablet 10 mg PO DAILY Qty: 90 3RF cyanocobalamin (vitamin B-12) 1,000 mcg capsule 1,000 mcg PO DAILY lisinopril 40 mg tablet 40 mg PO DAILY Qty: 90 3RF levothyroxine 100 mcg tablet 100 mcg PO DAILY Qty: 90 3RF gabapentin 600 mg tablet 600 mg PO BID Qty: 270 3RF
[2024-07-21] MEDS: GABAPENTIN 300 MG CAPSULE 600 MG PO (10:54)
== END 2024-07-21 11:50 | disposition home or self-care (01) ==
LOC: ANHSURGERY 07:32 → ANH3MEDSUR 11:15
PROVIDERS: Physician Assistant Surgical; PCP Family Medicine; Visit Provider Orthopaedic Surgery
PROC: (CPT 27447; principal; 2024-07-20 07:30)
DX: M17.11 Unilateral primary osteoarthritis, right knee (principal); N18.31 Chronic kidney disease, stage 3a; E03.9 Hypothyroidism, unspecified; E78.2 Mixed hyperlipidemia; E55.9 Vitamin D deficiency, unspecified; D51.3 Other dietary vitamin B12 deficiency anemia; Z87.891 Personal history of nicotine dependence; Z79.84 Long term (current) use of oral hypoglycemic drugs
CPT/HCPCS: 27447; 36415; 73560; 80048; 85025; 86850; 86900; 86901; 97110; 97116; 97161; 97165; 97530; 97535; C1776; A9270; C1713; J0171; J0690; J1100; J1596; J1885; J2003; J2250; J2270; J2405; J2704; J2795; J3010; J7120; J7512

== ENCOUNTER 2024-09-22 11:14 | Outpatient (CLI) | payer MEDICARE, SELFPAY ==
--- NOTE | ~2024-09-22 | US_ITS ---
US renal BI Ordering provider: Dylan Lambert MD History: . I12.9 - Hypertensive chronic kidney disease with stage 1 ... . Comparison: None. Technique: Ultrasound bilateral kidneys. Findings: RIGHT KIDNEY: Measures 10.5x 4.3x 4.6 cm in length which is normal in size. No renal cysts. No renal mass or visualized echogenic stones. Otherwise, normal echotexture and contour. No hydronephrosis. No rmal renal cortical thickness. LEFT KIDNEY: Measures 9.6x 5.4x 5.5 cm in length which is normal in size. No renal cysts. No renal ma ss or visualized echogenic stones. Otherwise, normal echotexture and contour. No hydronephrosis. Norm al renal cortical thickness. BLADDER: Normal. Volume 256.7 cc Ureteral jets were seen bilaterally. IMPRESSION: No definite abnormality seen. Reviewed, dictated and finalized at location A. MBLER SKYLIGHTS
--- OUTSIDE RECORDS SUMMARY | 2024-09-28 06:39 | XMS_ITS | Clinical Summary ---
Author Organization [facility] [place] [address] [place] [address] Care Team Providers Care Big 6 Dealer Name Role Phone Unavailable Primary Care Provider Unavailabl e Social History Tobacco Use Types Packs/Day Years Used Date Smoking Tobacco: Never Assessed Sex and Gender Information Value Date Recorded Sex Assigned at Not on file Legal Sex Male 12:42 AM PST Gender Identity Not on file Sexual Orientation Not on file Plan of Treatment Not on file
--- OUTSIDE RECORDS SUMMARY | 2024-09-28 06:39 | XMS_ITS | Continuity of Care Document ---
Author Organization [facility] Address [address] [place] [address] Phone Care Team Providers Care Information Writer Name Role Phone Gisele Avalos Unavailable Unavailable Advance Directives Directive Yes / No Effective Date File Name No Information Encounters Encounter Description Practice Location Reason(s) For Visit Diagnoses Date Provider Providers Copied on Encounter [facility], [address] [place] [address] [address], [place], [place], [id number], [place] tel:[phone] [facility] [place] No Information [address] [facility] , [address], [place], [address], [place]. tel:[phone] Family History Family Member Type Diagnosis Age At Onset No Information Payers Payer name Insurance type Covered constitution party ID Alison grajeda(s) [employer] [facility]. [id number] Social History Type Description Quantity Date Captured Comments Sex Male Smoking Status No Information Chief Complaint And Reason For Visit No Information Reason For Referral Reason For Referral No Information History Of Present Illness Encounter Date Complaint History Of Prese nt Illness No Information Functional Status Date Functional Assessmen t No Information Instructions Date Instruction Additional Infor mation No Information Assessments Type Assessment Date No Information Patient Care Teams Name Effective Dates (start - stop) Status Members No Information
--- OUTSIDE RECORDS SUMMARY | 2024-09-28 06:39 | XMS_ITS | Referral Summary ---
Author Organization [facility] [place] [address] [place] [address] Care Team Providers Care Stove Fitter Name Role Phone Unavailable Primary Care Provider [...]
--- OUTSIDE RECORDS SUMMARY | 2024-09-28 06:39 | XMS_ITS | Referral Summary ---
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 Activ e gabapentin (NEURONTIN) 600 mg tablet TAKE ONE TABLET 3 TIMES DAILY NEEDED FOR NEUROPATHY 11 9 Active lisinopriL (PRINIVIL,ZESTR IL) 40 mg tablet Take 1 tablet (40 mg total) by mouth daily 0 Active levothyroxine (SYNTHROID) 100 mcg tablet 1 Active vit D3-vit K-eioxyljrb-oug s [id number] jdvv-iag-fp-mg tablet Take by mouth Active Active Problems Problem Noted Date Diagnosed Date Squamous cell carcinoma of right tonsil 04/04/20 18 Metastasis to cervical lymph node 04/04/2018 Social History Tobacco Use Types Packs/Day Years Used Date Smoking Tobacco: Former Smokeless Tobacco: Former Chew Tobacco Cessation:Counseling Given: Not Answered Sex and Gender Information Value Date Recorded Sex Assigned at Not on file Legal Sex Male 5:17 AM NOZZLE CEMENT SPRAYER HELPER Gender Identity Not on file Sexual Orientation Not on file Last Filed Vital Signs Vital Sign Reading Time Taken Comments Blood Pressure 149/78 03/04/2022 1:17 PM CDT Pulse 69 03/04/2022 1:17 PM CDT Temperature 36.7 ??C (98.1 ??F) 04/25/2019 11:14 AM C DT Respiratory Rate 20 04/25/2019 11:14 AM CDT Oxygen Saturation 98% 04/25/2019 11:14 AM CDT Inhaled Oxygen Concentration - - Weight 94.6 kg (208 lb 9.6 oz) 07/19/2024 10:08 AM NOZZLE CEMENT SPRAYER HELPER Height 177.8 cm (5' 10 ) 07/21/2023 10:11 AM NOZZLE CEMENT SPRAYER HELPER Body Mass Index 29.93 07/21/2023 10:11 AM NOZZLE CEMENT SPRAYER HELPER Plan of Treatment Not on file Insurance [facility] Address: [facility] [id number] [place] [id number] [employer] MEDICARE Care Teams Inside Sales Consultant Relationship Specialty Start Date End Date Harrison Velasco MD [address] [address] PCP - General 01/18/17
--- OUTSIDE RECORDS SUMMARY | 2024-09-28 06:39 | XMS_ITS | CCD ---
Author Organization [facility] [place] Address [address] [place] [address] Care Team Providers Care Managed Security Sales Consultant Name Role Phone Unavailable Primary Care Provider [...]
--- OUTSIDE RECORDS SUMMARY | 2024-09-28 06:39 | XMS_ITS | Encounter Summary ---
Author Organization [facility] [place] [address] [place] [address] Care Team Providers Care Outcome Analyst Name Role Phone Unavailable Primary Care Provider Unavailabl e Prior Encounters Date Type Department Care Team Description 09/25/2019 Converted CPS Chart Documents [facility] [address] [place] [id number] <No scans attached> 09/25/2019 Converted 13x Documents [facility] [address] [place] [id number] <No scans attached> Plan of Treatment Not on file Procedures Procedure Name Priority Date/Time Associated Diagnosis Comments OFFICE VISIT FOR OBSERVATION (DURING REGULARLY SCHEDULED HOURS) - NO OTHER SERVICES PERFORMED Routine 10/08/2017 2:00 AM AIRCRAFT ENGINE MECHANIC SUPERVISOR 22 CLINICAL CROWN LENGTHENING ? HARD TISSUE Routine 09/18/2017 2:00 AM AIRCRAFT ENGINE MECHANIC SUPERVISOR 21 CLINICAL CROWN LENGTHENING ? HARD TISSUE Routine 09/18/2017 2:00 AM AIRCRAFT ENGINE MECHANIC SUPERVISOR 20 CLINICAL CROWN LENGTHENING ? HARD TISSUE Routine 09/18/2017 2:00 AM AIRCRAFT ENGINE MECHANIC SUPERVISOR PERIO CONSULT Routine 09/18/2017 2:00 AM AIRCRAFT ENGINE MECHANIC SUPERVISOR Visit Diagnoses Not on file
--- OUTSIDE RECORDS SUMMARY | 2024-09-28 06:39 | XMS_ITS | Clinical Summary ---
Author Organization [facility] [address] Address [address] [place] [address] Care Team Providers Care Gear Shaver Set Up Operator Name Role Phone Harrison Velasco MD Primary Care Provider [phone] Allergies No known active allergies Medications cyanocobalamin, vitamin B-12, 1,000 mcg tablet extended release Take by mouth. 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 Encounters Date Type Department Care Team Description 07/19/2024 10:20 AM SCHOOL PSYCHOLOGIST ASSISTANT Office Visit [facility] Department of Otolaryngology Head-Neck Division [facility] Floor [address] [place] [address] Khushi Oviedo PA Squamous cell carcinoma of right tonsil (HCC) (Primary Dx); Metastasis to cervical lymph node (HCC) from Last 3 Months Surgical History Surgery Date Site/Laterality Comments PORT REMOVAL 09/25/2014 N/A IR G TUBE PLACEMENT PERCUTANEOUS 04/23/2014 N/A PORT PLACEMENT CHEST >5 YEARS 01/23/2014 N/A Medical History Medical History Date Comments Peripheral neuropathy Cancer (CMS/HCC) (HCC) Gout Family History Medical History Relation Name Comments Cancer Father Heart disease Father Relation Name Status Comments Father Social History Tobacco Use Types Packs/Day Years Used Date Smoking Tobacco: Former Smokeless Tobacco: Former Chew Tobacco Cessation:Counseling Given: Not Answered Sex and Gender Information Value Date Recorded Sex Assigned at Not on file Legal Sex Male 5:17 AM SCHOOL PSYCHOLOGIST ASSISTANT Gender Identity Not on file Sexual Orientation Not on file Obstetrics History Last Filed Vital Signs Vital Sign Reading Time Taken Comments Blood Pressure 149/78 03/04/2022 1:17 PM CDT Pulse 69 03/04/2022 1:17 PM CDT Temperature 36.7 ??C (98.1 ??F) 04/25/2019 11:14 AM C DT Respiratory Rate 20 04/25/2019 11:14 AM CDT Oxygen Saturation 98% 04/25/2019 11:14 AM CDT Inhaled Oxygen Concentration - - Weight 94.6 kg (208 lb 9.6 oz) 07/19/2024 10:08 AM SCHOOL PSYCHOLOGIST ASSISTANT Height 177.8 cm (5' 10 ) 07/21/2023 10:11 AM SCHOOL PSYCHOLOGIST ASSISTANT Body Mass Index 29.93 07/21/2023 10:11 AM SCHOOL PSYCHOLOGIST ASSISTANT Plan of Treatment Health Maintenance Due Date Last Done Comments Colon Cancer Screening-Colonoscopy 1954 Depression Screening 1954 Fall Risk Assessment 1954 Hepatitis C Screening 1954 Hepatitis B Screening 1972 Abdominal Aortic Aneurysm (A AA) Screen 2019 Well Visit 65+ 2019 Pneumococcal vaccine 65+ (2 of 2 - PPSV23 or PCV20) 11/16/2019 09/21/2019 Covid-19 Vaccine (3 - Modern a risk series) 12/24/2020 11/26/2020, 10/16/2020 Influenza Vaccine (#1) 2024 , 06/26/2019, 06/16/2017, Additional history exists DTaP/Tdap/Td Vaccine (2 - Td or Tdap) 08/09/2028 08/09/2018 Zoster Vaccine Completed 10/26/2018, 08/18/2018 Insurance [facility] MEDIC[facility] Care Teams Gear Shaver Set Up Operator Relationship Specialty Start Date End Date Harrison Velasco MD [address] [address] PCP - General 01/18/17
--- OUTSIDE RECORDS SUMMARY | 2024-09-28 06:39 | XMS_ITS ---
Author Organization [facility] Address [address] [place] [address] Care Team Providers Care Airconditioning Plant Operator Name Role Phone Unavailable Unavailable Unavailable Surgery Details Not on file Complications Check Surgery Details section. Procedure Estimated Blood Loss Check Surgery Details section. Procedure Findings Check Surgery Details section. Procedure Specimens Taken Check Surgery Details section.
== END 2024-09-22 11:15 | disposition home or self-care (01) ==
PROVIDERS: PCP Family Medicine; Visit Provider Internal Medicine Nephrology
DX: I12.9 Hypertensive chronic kidney disease with stage 1 through stage 4 chronic kidney disease, or unspecified chronic kidney disease (principal); N18.32 Chronic kidney disease, stage 3b
CPT/HCPCS: 76775